=== PATIENT | female | born 1955 | race Two or more races ===

== ENCOUNTER 2022-09-27 14:25 | Outpatient (REF) | payer OTHER, SELFPAY ==
[2022-09-27 18:10] LABS: Cholesterol 179 mg/dL; HDL Cholesterol 94 mg/dL; LDL Cholesterol Calculated 61 mg/dl; Triglycerides 121 mg/dL
[2022-09-28 04:11] LABS: ~HepC Num1 0.19 S/CO (0.00-0.79); ~Hepatitis C Antibody Nonreactive (Nonreactive)
== END 2022-09-27 14:26 | disposition home or self-care (01) ==
LOC: HO.CHCLDS 14:25
PROVIDERS: Visit Provider Family Medicine
DX: Z13.9 Encounter for screening, unspecified (principal); E78.5 Hyperlipidemia, unspecified
CPT/HCPCS: 36415; 80061; 86803

== ENCOUNTER 2023-05-16 14:48 | Outpatient (REF) | payer OTHER, SELFPAY ==
[2023-05-16 17:49] LABS: Appearance Urine Clear; Color Urine Dark Yellow; Glucose Urine UA Negative (Negative); Leukocyte Esterase Urine Trace (Negative); Nitrite Urine Negative (Negative); PH 7.5 (5.0-9.0); Specific Gravity - Urine 1.025 (1.005-1.025); UMIC TRIGGER UACC YES; Urine Blood Negative (Negative); Urine Ketones Trace mg/dL (Negative); Urine Protein Negative (Neg-Trace)
[2023-05-16 17:52] LABS: Bacteria Urine None Seen (None Seen); Hyaline Casts Urine 0-2 /LPF (0-2); RBC Urine 0-2 /HPF (0-2); WBC Urine 0-5 /HPF (0-5)
== END 2023-05-16 14:49 | disposition home or self-care (01) ==
LOC: HO.CHCLNP 14:48
PROVIDERS: Visit Provider Family Medicine
DX: N39.41 Urge incontinence (principal)
CPT/HCPCS: 81001

== ENCOUNTER 2025-01-28 11:04 | Outpatient (REF) | payer OTHER, SELFPAY ==
--- OUTSIDE RECORDS SUMMARY | 2025-01-22 13:15 | XMS_ITS | Encounter Summary ---
Author Organization [employer] Address [address] [place] [address] Care Team Providers Care Crane Crew Supervisor Name Role Phone Therese Godinez MD Primary Care Provider [phone] Reason for Referral * Imaging (Routine) - Closed Specialty Diagnoses / Procedures Referred By Aimee souza Referred To Contact Radiology Diagnoses Encounter for screening mammogram for breast cancer Procedures MG Mammo Digital Screening w Kenia bilat [facility], Self Referral [facility] Referral ID Status Reason Start Date Expiration Date Visits Re quested Visits Authorized [id number] Closed 10/17/2024 10/17/2025 1 1 Reason for Visit * Imaging (Routine) - Closed Specialty Diagnoses / Procedures Referred By Aimee souza Referred To Contact Radiology Diagnoses Encounter for screening mammogram for breast cancer Procedures MG Mammo Digital Screening w Kenia bilat [facility], Self Referral [facility] Referral ID Status Reason Start Date Expiration Date Visits Re quested Visits Authorized [id number] Closed 10/17/2024 10/17/2025 1 1 Encounter Details Date Type Department Care Team (Latest Contact Info) Description 01/22/2025 1:15 PM EST - 01/22/2025 11:59 PM EST Hospital [facility] [address] [address] Encounter for screening mammogram for breast cancer Discharge Disposition: Home or Self Care Social History Tobacco Use Types Packs/Day Years Used Date Smoking Tobacco: Former Smokeless Tobacco: Never Alcohol Use Standard Drinks/Week Comments Yes 0 (1 standard drink = 0.6 oz pur e alcohol) Comments No Sex and Gender Information Value Date Recorded Sex Assigned at Female 10/08/2024 6:12 PM EDT Legal Sex Female 6:18 PM EST Gender Identity Not on file Sexual Orientation Not on file documented as of this encounter Last Filed Vital Signs Vital Sign Reading Time Taken Comments Blood Pressure - - Pulse - - Temperature - - Respiratory Rate - - Oxygen Saturation - - Inhaled Oxygen Concentration - - Weight 92.5 kg (204 lb) 01/22/2025 1:53 PM EST Height 149.9 cm (4' 11 ) 01/22/2025 1:53 PM EST Body Mass Index 41.2 01/22/2025 1:53 PM EST documented in this encounter Medications at Time of Discharge albuterol 2.5 mg /3 mL (0.083 %) nebulizer solution Inhale 3 mL (2.5 mg total) by mouth. 06/08/2022 amLODIPine (NORVASC) 5 mg tablet Take 1 tablet (5 mg total) by mouth 1 (one) time each day. 01/12/2022 bisacodyL (DULCOLAX) 5 mg EC tablet Take 2 tabs at 6pm as directed. 01/19/2022 Breo Ellipta 200-25 mcg/dose inhaler INHALE 1 PUFF BY MOUTH INTO THE lungs ONCE DAILY 60 each 11 06/20/2024 cetirizine (ZyrTEC) 10 mg tablet Take 1 tablet (10 mg total) by mouth 1 (one) time each day if needed. 12/17/2019 cholecalciferol (VITAMIN D-3) 50 mcg (2,000 unit) tablet Take 1 tablet (2,000 Units total) by mouth 1 (one) time each day. 01/27/2022 clonazePAM (KlonoPIN) 1 mg tablet Take 1 Tab by mouth 3 times daily. 05/29/2022 diclofenac (VOLTAREN) 1 % topical gel APPLY 2 GRAM TO THE AFFECTED AREA 4 (FOUR) TIMES DAILY 12/31/2022 docusate sodium (COLACE) 100 mg capsule Take 1 capsule (100 mg total) by mouth daily. 08/18/2020 DULoxetine (CYMBALTA) [address] capsule Take 1 capsule (60 mg total) by mouth daily. hydroCHLOROthiazi de (HYDRODIURIL) 25 mg tablet Take 1 tablet (25 mg total) by mouth 1 (one) time each day in the morning. 07/21/2021 lidocaine (LIDODERM) 5 % patch Place 1 patch on the skin. losartan (COZAAR) 25 mg tablet Take 1 tablet (25 mg total) by mouth 1 (one) time each day. 08/04/2021 melatonin 10 mg tablet Take by mouth at bedtime. 07/21/2021 nystatin (Nyamyc) 100,000 unit/gram powder 2 times daily. 08/13/2021 omeprazole (PriLOSEC) [address] capsule Take 1 capsule (20 mg total) by mouth. 12/17/2019 tolterodine LA (DETROL LA) 4 mg 24 hr capsule Take 1 capsule (4 mg total) by mouth 1 (one) time each day. 08/13/2021 Ventolin HFA 90 mcg/actuation inhalerIndication s:Personal history of nicotine dependence,Other specified chronic obstructive pulmonary disease (CMS/HCC V24, CMS/HCC V28) INHALE TWO PUFFS BY MOUTH 4 (FOUR) TIMES DAILY NEEDED FOR SHORTNESS OF BREATH OR FOR WHEEZING 18 g 2 11/21/2024 vitamin O88-wralg acid (Foltrate) 0.5-1 mg tablet Take by mouth. documented as of this encounter Discharge Disposition Disposition Code Departure Means Destination Home or Self Care documented in this encounter Plan of Treatment Upcoming Encounters Date Type Department Care Team (Late st Contact Info) Description 06/24/2025 2:30 PM EDT Office Visit Pulmonology - [address] [place] [address] Shelby Castro MD [address] [place] [phone] documented as of this encounter Procedures Procedure Name Priority Date/Time Associated Diagnosis Comments MG MAMMO DIGITAL SCREENING W KENIA BILAT Routine 01/22/2025 1:59 PM EST Encounter for screening mammogram for breast cancer documented in this encounter Results * MG Mammo Digital Screening w Kenia bilat (01/22/2025 1:59 PM EST) Anatomical Region Laterality Modality Breast Bilateral Mammography 01/22/2025 2:14 PM EST Impressions 01/23/2025 8:49 AM EST Benign. BI-RADS CATEGORY: 1 - NEGATIVE RECOMMENDATION: Screening bilateral mammogram is recommended in 1 year. Mammo Location: [facility], [address] [place] [address], [id number], . -------- FINAL REPORT -------- Dictated By: Yoyn Tinajero Dictated Date: 01/22/2025 14:14 ET Assigned Physician: Yony Tinajero Reviewed and Electronically Signed By: Yony Tinajero Signed Date: 01/23/2025 08:49 ET Workstation ID: [id number] Transcribed By: Self Edit Transcribed Date: 01/22/2025 14:14 ET Narrative 01/23/2025 8:49 AM EST CLINICAL: 69 years old, Female, routine annual exam. COMPARISON: 12/30/2023 and 10/08/2022. TECHNIQUE: Bilateral MLO and CC views were obtained digitally with 3-D mammogram (digital breast tomosynthesis). Computer-aided detection was utilized in evaluation of this exam (CAD). FINDINGS: No suspicious mass or architectural distortion. No suspicious calcification. There has been no significant change from prior exam(s). BREAST DENSITY: B - There are scattered areas of fibroglandular density. Procedure Note Yony Tinajero MD - 01/23/2025 CLINICAL: 69 years old, Female, routine annual exam. COMPARISON: 12/30/2023 and 10/08/2022. TECHNIQUE: Bilateral MLO and CC views were obtained digitally with 3-Dmammogram (digital breast tomosynthesis). Computer-aided detection wasutilized in evaluation of this exam (CAD). FINDINGS: No suspicious mass or architectural distortion. No suspiciouscalcification. There has been no significant change from prior exam(s). BREAST DENSITY: B - There are scattered areas of fibroglandular density. IMPRESSION: Benign. BI-RADS CATEGORY: 1 - NEGATIVE RECOMMENDATION: Screening bilateral mammogram is recommended in 1 year. Mammo Location: [facility], [address] [place] [address], [id number], . -------- FINAL REPORT -------- Dictated By: Yony Tinajero Dictated Date: 01/22/2025 14:14 ET Assigned Physician: Yony Tinajero Reviewed and Electronically Signed By: Yony Tinajero Signed Date: 01/23/2025 08:49 ET Workstation ID: [id number] Transcribed By: Self Edit Transcribed Date: 01/22/2025 14:14 ET us Self Referral [facility] IMG BI PROCEDURES Final Resul t documented in this encounter Visit Diagnoses Diagnosis Encounter for screening mammogram for breast cancer documented in this encounter Care Teams Crane Crew Supervisor Relationship Specialty Start Date End Date Therese Godinez MD [address] [place] [address] PCP - General 08/20/21 documented as of this encounter
--- OUTSIDE RECORDS SUMMARY | 2025-01-28 09:30 | XMS_ITS | Encounter Summary ---
Author Organization [employer] Address [address] [facility] [facility] [address] [place] [address] Care Team Providers Care Leadership Development Manager Name Role Phone Therese Godinez MD Primary Care Provider [phone] Reason for Visit * Reason Comments Followup chronic medical conditions Encounter Details Date Type Department Care Team ([facility] Contact Info) Description 01/28/2025 9:30 AM EST Office Visit [facility] [address], [place] [phone] Therese Godinez MD [address] [place] [address] Class 3 severe obesity due to excess calories with serious comorbidity and body mass index (BMI) of 40.0 to 44.9 in adult (HCC) (Primary Dx); Cervical pain; Primary hypertension; Encounter for immunization; History of CVA with residual deficit; MCI (mild cognitive impairment) Social History Tobacco Use Types Packs/Day Years Used Date Smoking Tobacco: Never Passive Smoke Exposure: Never Smokeless Tobacco: Never Alcohol Use Standard Drinks/Week Comments Not Currently 0 (1 standard drink = 0.6 oz pur e alcohol) 1 month without drinking Depression Answer Date Recorded Patient Health Questionnaire-9 Score 15 01/28/2025 Patient Health Questionnaire-9 Score 15 01/28/2025 Last PHQ-9: Questionnaire Data Not on file 1 03/31/2024 Housing Stability Answer Date Recorded What is your housing situation today? I have [place] 01/28/[address] you li ve. Do you have problems with any of the following? None of the above 01/28/2025 Food Insecurity Answer Date Recorded Within the past 12 months, y ou worried that your food would run out before you got money to buy more: Never True 01/28/2025 Within the past 12 months,th e food you bought just didn't last and you didn't have enough money to get more: Never True 02/2024 Transportation Answer Date Recorded In the past 12 months, has l ack of transportation kept you from medical appts, meetings, work or from getting things needed for daily living? No 01/28/2025 Utilities Answer Date Recorded In the past 12 months, has t he electric, gas, oil or water company threatened to shut off services in your home? No 01/28/2025 Depression Answer Date Recorded Patient Health Questionnaire-2 Score 3 01/28/2025 Internet Access Answer Date Recorded Internet Access Q1 Yes 01/28/2025 Internet Access Q2 Not on file 01/28/2025 Comments No Sex and Gender Information Value Date Recorded Sex Assigned at Female 12/28/2021 10:39 AM EDT Legal Sex Female 10:39 AM EDT Gender Identity Female 12/28/2021 10:39 AM EDT Sexual Orientation Choose not to disclose 2021 10:39 AM EDT documented as of this encounter Last Filed Vital Signs Vital Sign Reading Time Taken Comments Blood Pressure 156/76 01/28/2025 9:25 AM EST Pulse 74 01/28/2025 9:25 AM EST Temperature 36.8 C (98.2 F) 01/28/2025 9:25 AM EST Respiratory Rate 20 01/28/2025 9:25 AM EST Oxygen Saturation 98% 01/28/2025 9:25 AM EST Inhaled Oxygen Concentration - - Weight 99.1 kg (218 lb 6.4 oz) 01/28/2025 9:25 A M EST Height 149.9 cm (4' 11 ) 01/28/2025 9:25 AM EST Body Mass Index 44.11 01/28/2025 9:25 AM EST documented in this encounter Functional Status * Over the past 2 weeks, how often have you been bothered by any of the following problems? Question Answer Date of Assessment Author Patient Health Questionnaire-2 Score 3 02/2024 9:54 AM Luciana Nice MA * Little interest or pleasure in doing things Answer Date of Assessment Author Several days 01/28/2025 9:54 AM Luciana Nice MA * Feeling down, depressed, or hopeless Answer Date of Assessment Author More than half the days 01/28/2025 9:54 AM Luciana Hodge MA * Trouble falling or staying asleep, or sleeping too much Answer Date of Assessment Author More than half the days 01/28/2025 9:54 AM Luciana Hodge MA * Feeling tired or having little energy Answer Date of Assessment Author Nearly every day 01/28/2025 9:54 AM Luciana Nice MA * Poor appetite or overeating Answer Date of Assessment Author Nearly every day 01/28/2025 9:54 AM Luciana Nice MA * Feeling bad about yourself - or that you are a failure or have let yourself or your family down Answer Date of Assessment Author More than half the days 01/28/2025 9:54 AM Luciana Hodge MA * Trouble concentrating on things, such as reading the newspaper or watching television Answer Date of Assessment Author Several days 01/28/2025 9:54 AM Luciana Nice MA * Moving or speaking so slowly that other people could have noticed? Or the opposite - being so fidgety or restless that you have been moving around a lot more than usual. Answer Date of Assessment Author Several days 01/28/2025 9:54 AM Luciana Nice MA * Thoughts that you would be better off or hurting yourself in some way Answer Date of Assessment Author Not at all 01/28/2025 9:54 AM Luciana Nice MA * Patient Health Questionnaire-9 Score Answer Date of Assessment Author 15 01/28/2025 9:54 AM Luciana Nice MA documented as of this encounter Progress Notes * Therese Godinez MD - 01/28/2025 9:30 AM EST Subjective Patient ID: Urvashi Viveros is a 69 y.o. female who presents for Followup chronic medical conditions. Urvashi Viveros presents with severe anxiety that is significantly impacting her ability towork and function. She reports eating excessively, drinking large amounts of water, urinating frequently, and experiencing diarrhea in association with her anxiety symptoms. She states she cannot continue working in her current condition and needs help managing these symptoms. The patient is seeking weight loss assistance, noting that her insurance will only cover obesity injections for diabetes, which she does not have. She reports that phentermine is not an option due toher high blood pressure and anxiety. She expresses that she needs to lose weight in order to have knee surgery and to help reduce her anxiety symptoms. She reports significant pain in her waist and back. Two months ago, she experienced a fainting episode during which she hit her head but did not seek hospital care. She continues to experience fatigue, which she attributes to her age, and reports fear of falling again, now using a walking stick forsupport. Regarding medication adherence, she has not taken her blood pressure medication today due to scheduled blood tests. She is currently taking 150mg Wellbutrin, 1mg clonazepam, 60mg Cymbalta, 10mg melatonin, and 15mg Remeron under the care of psychiatrist Dr. Adam Cortez. She expresses dissatisfaction with Remeron, stating it causes falls and weight gain. The patient reports functional limitations requiring assistance from her daughter with laundry, shopping, cleaning, bills, and bathing, though she continues to cook and prepare her own medications. She denies having diabetes, problems with teeth or dentures, and reports not smoking for 15 years. Medical History - Anxiety - High blood pressure - History of stroke with residual right hand weakness - Syncope with head injury approximately two months ago, did not seek medical attention Medications and Supplements - Wellbutrin 150 mg - Clonazepam 1 mg - Cymbalta 60 mg - Melatonin 10 mg - Remeron 15 mg - Makes her fall and gain weight. Doesn't like it. Social History - Substance Use: Denies smoking, quit 15 years ago - Living Situation: Lives with daughter who provides assistance with activities of daily living including laundry, shopping, cleaning, bills, and bathing - Social Support: Daughter provides significant caregiving support; patient maintains some independence with cooking and medication preparation - Functional Status: Uses walking stick for mobility support due to fear of falling; requires assistance with some household tasks Immunizations - Influenza: Patient reports getting sick after receiving flu vaccine in November - PCV20: Patient received pneumococcal vaccine three years ago - COVID-19: Patient declines COVID-19 vaccination Review of Systems General: Positive for fatigue and increased appetite. Gastrointestinal: Positive for diarrhea and increased water intake. Genitourinary: Positive for urinary frequency. Musculoskeletal: Positive for waist pain and back pain. Neurological: Positive for episodes of falling. Psychiatric: Positive for anxiety. Review of Systems Objective BP (!) 156/76 Pulse 74 Temp 98.2 ??F (36.8 ??C) (Oral) Resp 20 Ht 4' 11 (1.499 m) Wt 218lb 6.4 oz (99.1 kg) SpO2 98% BMI 44.11 kg/m?? Physical Exam Constitutional: General: She is not in acute distress. Appearance: She is obese. She is not ill-appearing. Comments: Walks with cane HENT: Head: Atraumatic. Right Ear: Tympanic membrane, ear canal and external ear normal. Left Ear: Tympanic membrane, ear canal and external ear normal. Nose: No congestion. Mouth/Throat: Pharynx: No oropharyngeal exudate or posterior oropharyngeal erythema. Eyes: Extraocular Movements: Extraocular movements intact. Pupils: Pupils are equal, round, and reactive to light. Cardiovascular: Rate and Rhythm: Normal rate and regular rhythm. Pulses: Normal pulses. Pulmonary: Effort: Pulmonary effort is normal. No respiratory distress. Breath sounds: Normal breath sounds. No wheezing. Musculoskeletal: Left shoulder: No swelling, deformity or tenderness. Decreased range of motion. Decreased strength. Assessment/Plan Problem List Items Addressed This Visit HTN (hypertension) Relevant Orders CBC auto differential Comprehensive Metabolic Panel Lipid Panel, Standard Albumin, Random Urine W/Creatinine Class 3 severe obesity due to excess calories with serious comorbidity and body mass index (BMI) of40.0 to 44.9 in adult (HCC) - Primary Relevant Orders POCT Glucose (Completed) POCT Hgb A1c (Completed) Cervical pain History of CVA with residual deficit Other Visit Diagnoses Encounter for immunization Relevant Orders FLU VACCINE TRIVALENT HIGH DOSE [id number] (Fluzone) 65 yrs + (Completed) Urvashi Viveros presents with anxiety disorder, weight management concerns, hypertension, mild cognitive impairment, and fall risk issues. Anxiety disorder Assessment: Patient reports severe anxiety that significantly impacts her ability to work and function. Currently managed by Adam Cortez WATER SANDER with multiple medications including clonazepam 1mg, Wellbutrin 150mg, Cymbalta 60mg, and Remeron 15mg. Patient expresses dissatisfaction with Remeron due to side effects of falls and weight gain. Anxiety appears to be contributing to her overall functional decline and weight management challenges. Plan: - Consider increasing Wellbutrin to 300mg with addition of naltrexone for dual benefit of anxiety management and weight loss - Continue current psychiatric care with Dr. Adam Cortez Weight management Assessment: Patient reports significant weight concerns with associated symptoms of increased appetite and frequent urination. Weight loss is medically necessary for knee surgery candidacy and anxiety reduction. Phentermine contraindicated due to hypertension and anxiety. Insurance coverage limitations prevent access to obesity injections, which are only covered for diabetes patients. Plan: - Consider increasing Wellbutrin to 300mg with addition of naltrexone for weight management Hypertension Assessment: Patient has established hypertension and reports needing a new blood pressure monitoring device. Medication compliance interrupted today due to pending blood tests. Hypertension limits pharmacological weight management options. Plan: - Obtain new blood pressure monitoring device Mild cognitive impairment Assessment: Cognitive assessment performed with memory tests, mathematical calculations, animal naming, digit span, clock drawing, and story recall. Patient demonstrated some difficulties but overallperformance indicates slight memory alteration without dementia. Patient has established social security payee/guardian arrangement as precautionary measure. Plan: - Recommend staying active and maintaining hobbies - Healthcare proxy discussion and form completion with daughter present for signing - Nurse appointment scheduled for healthcare proxy paperwork Fall risk and mobility issues Assessment: Patient reports fainting episode two months ago resulting in head injury without hospital evaluation. Currently uses walking stick for support due to fear of falling. Right hand weakness noted on examination, attributed to previous stroke history. Patient experiences waist and back pain. Requires assistance from daughter for various activities of daily living including laundry, shopping, cleaning, bills, and bathing. Plan: - Continue use of walking cane for mobility support Preventive care Assessment: Patient due for routine vaccinations. Reports previous illness after flu vaccine but timing suggests unrelated illness in November. Patient completed mammography as scheduled. Declines COVID vaccination. Plan: - Administer influenza vaccine today - Nurse to administer vaccine Patient requesting 10 in 1 Flip pillow for her cervical back pain and knee osteoarthritis Florez Index of ADL: 6 Jonnathan: 3 SLUMS: 24 documented in this encounter Plan of Treatment Upcoming Encounters Date Type Department Care Team (Late st Contact Info) Description 02/13/2025 2:00 PM EST Clinical Support [facility] [address] [place] [address] Scheduled Orders Name Type Priority Associated Diagnoses Orde r Schedule CBC auto differential Lab Routine Primary hypertension Expected: 01/28/2025 (Approximate), Expires: 01/28/2026 Comprehensive Metabolic Panel Lab Routine Primary hypertension Expected: 01/28/2025 (Approximate), Expires: 01/28/2026 Lipid Panel, Standard Lab Routine Primary hypertension Expected: 01/28/2025 (Approximate), Expires: 01/28/2026 Albumin, Random Urine W/Creatinine Lab Routine Primary hypertension Expected: 01/28/2025 (Approximate), Expires: 01/28/2026 documented as of this encounter Procedures Procedure Name Priority Date/Time Associated Diagnosis Comments POCT GLUCOSE Routine 01/28/2025 10:07 AM EST Class 3 severe obesity due to excess calories with serious comorbidity and body mass index (BMI) of 40.0 to 44.9 in adult ([facility]) POCT GLYCATED HEMOGLOBIN, TOTAL Routine 01/28/2025 10:06 AM EST Class 3 severe obesity due to excess calories with serious comorbidity and body mass index (BMI) of 40.0 to 44.9 in adult ([facility]) documented in this encounter Results * POCT Glucose (01/28/2025 10:07 AM EST) Glucose Blood, POC 110 60 - 200 mg/dL QC Media Lot # [id number] Blood Capillary blood specimen / Unknown 01/28/2025 10:07 AM EST Therese Godinez MD POINT OF CARE TEST ENTER/EDIT ORDERABLES Final Result * POCT Hgb A1c (01/28/2025 10:06 AM EST) Hemoglobin A1C 5.1 4.0 - 5.7 % QC Media Lot # [id number] Lot# Expiration Date [id number] Blood 01/28/2025 10:0 6 AM EST us Therese Godinez MD POINT OF CARE TEST ENTER/EDIT ORDERABLES Final Result documented in this encounter Visit Diagnoses Diagnosis Class 3 severe obesity due to excess calories with serious comorbidity and body mass index (BMI) of 40.0 to 44.9 in adult (HCC)- Primary Cervical pain Cervicalgia Primary hypertension Unspecified essential hypertension Encounter for immunization History of CVA with residual deficit MCI (mild cognitive impairment) Mild cognitive impairment, so stated documented in this encounter Additional Health Concerns Assessment Noted Time PHQ-9 Depression Total Score: 15 025 9:54 AM EST documented as of this encounter Care Teams Leadership Development Manager Relationship Specialty Start Date End Date Therese Godinez MD [address] [place] [address] PCP - General Family Medicine 11/27/20 Adam Cortez Nurse Practitioner Psychiatry 06/29/23 documented as of this encounter
[2025-01-28 14:26] LABS: MANUAL DIFF FLAG NO
--- OUTSIDE RECORDS SUMMARY | 2025-01-28 14:29 | XMS_ITS | Encounter Summary ---
Author Organization [employer] Address [address] [place] [address] Care Team Providers Care Automatic Washer Mechanic Name Role Phone Therese Godinez MD Primary Care Provider [phone] Reason for Visit * Reason Comments Med Refill Encounter Details Date Type Department Care Team ([facility] Contact Info) Description 09/13/2022 Refill [facility] MEDICINE [address] [place] [address] Therese Godinez MD [address] [place], [place] [phone] Primary hypertension Social History Tobacco Use Types Packs/Day Years Used Date Smoking Tobacco: Never Passive Smoke Exposure: Never Smokeless Tobacco: Never Alcohol Use Standard Drinks/Week Comments Never 0 (1 standard drink = 0.6 oz pur e alcohol) Depression Answer Date Recorded Patient Health Questionnaire-9 Score 4 06/28/2022 Depression Answer Date Recorded Patient Health Questionnaire-2 Score 2 06/28/2022 Comments Unknown Sex and Gender Information Value Date Recorded Sex Assigned at Female 12/28/2021 10:39 AM EDT Legal Sex Female 10:39 AM EDT Gender Identity Female 12/28/2021 10:39 AM EDT Sexual Orientation Choose not to disclose 2021 10:39 AM EDT COVID-19 Exposure Response Date Recorded In the last 10 days, have yo u been in contact with someone who was confirmed or suspected to have Coronavirus/COVID-19? No / Unsure 08/25/2022 1:58 PM EDT documented as of this encounter Plan of Treatment Upcoming Encounters Date Type Department Care Team ([facility] Contact Info) Description 02/13/2025 2:00 PM EST Clinical Support [facility] CHC MED & PEDS [address] [place] [address] documented as of this encounter Visit Diagnoses Diagnosis Primary hypertension Unspecified essential hypertension documented in this encounter Additional Health Concerns Assessment Noted Time PHQ-9 Depression Total Score: 4 06/29/19 23 9:31 AM EDT documented as of this encounter Care Teams Automatic Washer Mechanic Relationship Specialty Start Date End Date Therese Godinez MD [address] [place] [id number] PCP - General Family Medicine 11/27/20 Adam Cortez Nurse Practitioner Psychiatry 06/29/23 documented as of this encounter
--- OUTSIDE RECORDS SUMMARY | 2025-01-28 14:29 | XMS_ITS | Encounter Summary ---
Author Organization [employer] Address [address] [place] [address] Care Team Providers Care Strap Buckler Name Role Phone Therese Godinez MD Primary Care Provider [phone] Reason for Visit * Reason Comments Med Refill Encounter Details Date Type Department Care Team ([facility] Contact Info) Description 10/21/2023 Refill [facility] CHC MED & PEDS [address] [place], [place] [phone] Therese Godinez MD [address] [place], [place] [phone] Urinary incontinence, unspecified type Social History Tobacco Use Types Packs/Day Years Used Date Smoking Tobacco: Never Passive Smoke Exposure: Never Smokeless Tobacco: Never Alcohol Use Standard Drinks/Week Comments Not Currently 0 (1 standard drink = 0.6 oz pur e alcohol) 1 month without drinking Depression Answer Date Recorded Patient Health Questionnaire-9 Score 4 06/28/2022 Housing Stability Answer Date Recorded What is your housing situation today? I have villa loepz 12/13/[address] you li ve. Do you have problems with any of the following? None of the above 12/13/2022 Food Insecurity Answer Date Recorded Within the past 12 months, y ou worried that your food would run out before you got money to buy more: Never True 12/13/2022 Within the past 12 months,th e food you bought just didn't last and you didn't have enough money to get more: Never True Transportation Answer Date Recorded In the past 12 months, has l ack of transportation kept you from medical appts, meetings, work or from getting things needed for daily living? No 12/13/2022 Utilities Answer Date Recorded In the past 12 months, has t he electric, gas, oil or water company threatened to shut off services in your home? No 12/13/2022 Depression Answer Date Recorded Patient Health Questionnaire-2 Score 2 06/28/2022 Comments No Sex and Gender Information Value Date Recorded Sex Assigned at Female 12/28/2021 10:39 AM EDT Legal Sex Female 10:39 AM EDT Gender Identity Female 12/28/2021 10:39 AM EDT Sexual Orientation Choose not to disclose 2021 10:39 AM EDT documented as of this encounter Plan of Treatment Upcoming Encounters Date Type Department Care Team (Late st Contact Info) Description 02/13/2025 2:00 PM EST Clinical Support [facility] MED & PEDS [address] [place] [address] documented as of this encounter Visit Diagnoses Diagnosis Urinary incontinence, unspecified type documented in this encounter Additional Health Concerns Assessment Noted Time PHQ-9 Depression Total Score: 4 06/29/19 23 9:31 AM EDT documented as of this encounter Care Teams Strap Buckler Relationship Specialty Start Date End Date Therese Godinez MD [address] [place] [id number] PCP - General Family Medicine 11/27/20 Adam Cortez Nurse Practitioner Psychiatry 06/29/23 documented as of this encounter
--- OUTSIDE RECORDS SUMMARY | 2025-01-28 14:29 | XMS_ITS | Encounter Summary ---
Author Organization [email or web address] Address [address] [place] [address] Care Team Providers Care Quarantine Officer Name Role Phone Therese Godinez MD Primary Care Provider [phone] Encounter Details Date Type Department Care Team (Late st Contact Info) Description 08/31/2023 Orders Only [facility] CHC MED & PEDS [address] [place] [address] Provider, MD Komal Social History Tobacco Use Types Packs/Day Years [...] housing situation today? I have villa lopez 12/13/[address] you li [...] Description 02/13/2025 2:00 PM EST Clinical Support [facility] MED & PEDS [address] [place] [address] documented as of this encounter Procedures Procedure Name Priority Date/Time Associated Diagnosis Comments COLONOSCOPY Routine 01/27/2023 3:51 PM EST documented in this encounter Results * Colonoscopy (01/27/2023 3:51 PM EST) Anatomical Region Laterality Modality Endoscopy us Historical Provider ENDOSCOPY PROCEDURE ORDER MONICA Final Result documented in this encounter Visit Diagnoses Not on filedocumented in this encounter Additional Health Concerns Assessment Noted Time PHQ-9 Depression Total Score: 4 06/29/19 23 9:31 AM EDT documented as of this encounter Care Teams Quarantine Officer Relationship Specialty Start Date End Date Therese Godinez MD [address] [place] [address] PCP - General Family Medicine 11/27/20 Adam Cortez Nurse Practitioner Psychiatry 06/29/23 documented as of this encounter
--- OUTSIDE RECORDS SUMMARY | 2025-01-28 14:29 | XMS_ITS | Encounter Summary ---
Author Organization [employer] Address [address] [place] [address] Care Team Providers Care Associate Professor Of Biostatistics Name Role Phone Therese Godinez MD Primary Care Provider [phone] Encounter Details Date Type Department Care Team (Latest Contact Info) Description 01/28/2025 Travel Social History Tobacco Use Types Packs/Day Years [...] AM EDT documented as of this encounter Functional Status * Over the [...] [place] documented as of this encounter Plan of Treatment Upcoming Encounters Date Type Department Care Team (Late st Contact Info) Description 02/13/2025 2:00 PM EST Clinical Support [facility] MED & PEDS [address] [place] [address] documented as of this encounter Visit Diagnoses Not on filedocumented in this encounter Additional Health Concerns Assessment Noted Time PHQ-9 Depression Total Score: 15 025 9:54 AM EST documented as of this encounter Care Teams Associate Professor Of Biostatistics Relationship Specialty Start Date End Date Therese Godinez MD [address] [place] [address] PCP - General Family Medicine 11/27/20 Adam Cortez Nurse Practitioner Psychiatry 06/29/23 documented as of this encounter
--- OUTSIDE RECORDS SUMMARY | 2025-01-28 14:29 | XMS_ITS | Encounter Summary ---
Author Organization [employer] Address [address] [place] [address] Care Team Providers Care Email Marketing Processor Name Role Phone Therese Godinez MD Primary Care Provider [phone] Encounter Details Date Type Department Care Team (Late st Contact Info) Description 09/26/2023 Orders Only [facility] CHC MED & PEDS [address] [place] [address] Provider, MD Komal Social History Tobacco Use [...] PM EST Clinical Support [facility] MED & PEDS [address] [place] [address] documented as of this encounter Procedures Procedure Name Priority Date/Time Associated Diagnosis Comments HM LUNG CANCER SCREENING Routine 09/19/2023 3:[address] LUNG SCREENING Routine 09/19/2023 8:33 AM EDT documented in this encounter Results * Hm Lung Cancer Screning (09/19/2023 3:42 PM EDT) Anatomical Region Laterality Modality Other us Historical Provider HEALTH MAINTENANCE Final Result * CT Lung Screening Low dose (09/19/2023 8:33 AM EDT) Anatomical Region Laterality Modality Lung Computed Tomogra phy us Historical Provider IMG CT PROCEDURES Final R esult documented in this encounter Visit Diagnoses Not on filedocumented in this encounter Additional Health Concerns Assessment Noted Time PHQ-9 Depression Total Score: 4 06/29/19 23 9:31 AM EDT documented as of this encounter Care Teams Email Marketing Processor Relationship Specialty Start Date End Date Therese Godinez MD [address] [place] [address] PCP - General Family Medicine 11/27/20 Adam Cortez Nurse Practitioner Psychiatry 06/29/23 documented as of this encounter
--- OUTSIDE RECORDS SUMMARY | 2025-01-28 14:29 | XMS_ITS | Encounter Summary ---
Author Organization [employer] Address [address] [place] [address] Care Team Providers Care Accounts Payables Clerk Name Role Phone Therese Godinez MD Primary Care Provider [phone] Encounter Details Date Type Department Care Team ([facility] Contact Info) Description 01/28/2025 Telephone C CHC MED & PEDS [address] [place], [place] [phone] Therese Godinez MD [address] [place], [place] [phone] Social History Tobacco Use Types Packs/Day Years [...] [place] documented as of this encounter Miscellaneous Notes * Telephone Encounter - Debbie Beck LPN - 01/28/2025 12:48 PM EST RX generated and faxed L&C with pcp notes . If pt is requesting Status pt can call vendor [phone] Rx scanned into media for review ----- Message from Therese Godinez MD sent at 01/28/2025 11:30 AM EST ----- Can we proceed with patient request for a 10in 1 flip pillow please and thanks! * Telephone Encounter - Debbie Beck LPN - 01/28/2025 12:48 PM EST ----- Message from Therese Godinez MD sent at 01/28/2025 11:30 AM EST ----- Can we proceed with patient request for a 10in 1 flip pillow please and thanks! documented in this encounter Plan of Treatment Upcoming Encounters Date Type Department Care Team ([facility] st Contact Info) Description 02/13/2025 2:00 PM EST Clinical Support [facility] MED & PEDS [address] [place] [address] documented as of this encounter Visit Diagnoses Not on filedocumented in this encounter Additional Health Concerns Assessment Noted Time PHQ-9 Depression Total Score: 15 025 9:54 AM EST documented as of this encounter Care Teams Accounts Payables Clerk Relationship Specialty Start Date End Date Therese Godinez MD [address] [place] [address] PCP - General Family Medicine 11/27/20 Adam Cortez Nurse Practitioner Psychiatry 06/29/23 documented as of this encounter
--- OUTSIDE RECORDS SUMMARY | 2025-01-28 14:29 | XMS_ITS | Clinical Summary ---
Author Organization [facility] Address [address] [place] [phone] Phone Care Team Providers Care Sales Agent Casualty Insurance Name Role Phone Therese Godinez MD Primary Care Provider [phone] Allergies Active Allergy Reactions Criticality Noted Date Comments Aspirin-Sod Bicarb-Citric Acid Other High 04/11/2023 Pt states can cause Internal bleeding per her provider. Latex 11/27/2020 Medications albuterol 2.5 mg /3 mL (0.083 %) nebulizer solution Inhale 3 mL (2.5 mg total) by mouth. 3 Active amLODIPine (NORVASC) 5 mg tablet Take 1 tablet (5 mg total) by mouth 1 (one) time each day. 2 Active bisacodyL (DULCOLAX) 5 mg EC tablet Take 2 tabs at 6pm as directed. 2 Active hydroCHLOROthiaz ector (HYDRODIURIL) 25 mg tablet Take 1 tablet (25 mg total) by mouth 1 (one) time each day in the morning. 2 Active losartan (COZAAR) 25 mg tablet Take 1 tablet (25 mg total) by mouth 1 (one) time each day. 2 Active melatonin 10 mg tablet Take by mouth at bedtime. 2 Active tolterodine LA (DETROL LA) 4 mg 24 hr capsule Take 1 capsule (4 mg total) by mouth 1 (one) time each day. 2 Active cholecalciferol (VITAMIN D-3) 50 mcg (2,000 unit) tablet Take 1 tablet (2,000 Units total) by mouth 1 (one) time each day. 2 Active diclofenac (VOLTAREN) 1 % topical gel APPLY 2 GRAM TO THE AFFECTED AREA 4 (FOUR) TIMES DAILY 3 Active lidocaine (LIDODERM) 5 % patch Place 1 patch on the skin. Active nystatin (Nyamyc) 100,000 unit/gram powder 2 times daily. 2 Active vitamin Z22-wuelh acid (Foltrate) 0.5-1 mg tablet Take by mouth. Activ e docusate sodium (COLACE) 100 mg capsule Take 1 capsule (100 mg total) by mouth daily. 1 Active cetirizine (ZyrTEC) 10 mg tablet Take 1 tablet (10 mg total) by mouth 1 (one) time each day if needed. 0 Active omeprazole (PriLOSEC) [address] capsule Take 1 capsule (20 mg total) by mouth. 0 Active DULoxetine (CYMBALTA) [address] capsule Take 1 capsule (60 mg total) by mouth daily. Active clonazePAM (KlonoPIN) 1 mg tablet Take 1 Tab by mouth 3 times daily. 3 Active Breo Ellipta 200-25 mcg/dose inhaler INHALE 1 PUFF BY MOUTH INTO THE lungs ONCE DAILY 60 each 11 5 Active Ventolin HFA 90 mcg/actuation inhalerIndicatio ns:Personal history of nicotine dependence,Other specified chronic obstructive pulmonary disease ([facility] V24, [facility] V28) INHALE TWO PUFFS BY MOUTH 4 (FOUR) TIMES DAILY NEEDED FOR SHORTNESS OF BREATH OR FOR WHEEZING 18 g 2 5 Active Active Problems Problem Noted Date Diagnosed Date Pulmonary nodules 10/29/2019 Overview (12/27/2023): Last Assessment & Plan: Stable pulmonary nodules subcentimeter. Continue in the lung cancer screening program. 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 D classification ([facility] V24, [facility] V28) 10/29/2019 Overview (12/27/2023): Last Assessment & Plan: Continue with the use of Breo/Ellipta 1 puff once a day Continue with albuterol as needed New PFT in August 2022 Patient already quit smoking Patient has a plan of action Hyperuricemia 06/09/2017 Fatty liver 11/27/2015 Asthma 11/27/2015 Morbid obesity (CMS/[facility] V24, [facility] V28) 2015 Depression 07/30/2015 Overview (12/27/2023): F/u Dr. Gilma Estrada 07/30/2015 Primary hypertension 07/30/2015 Overview (12/27/2023): Last Assessment & Plan: Controlled HTN (hypertension) 07/30/2015 Encounters Date Type Department Care Team Description 01/22/2025 1:15 PM EST - 01/22/2025 11:59 PM EST Hospital Encounter [facility] [address] [place] [address] Encounter for screening mammogram for breast cancer Discharge Disposition: Home or Self Care 11/06/2024 Telephone Pulmonology - [place] [address] [facility] [address] [place] [address] Shelby Castro MD from Last 3 Months Immunizations Immunization Administration Dates Next Due Influenza Quadravalent, 0.5m l (Fluzone High-dose) 65yo and older 12/02/2022,12/16/2021 Influenza Quadravalent, MDCK , 0.5ml, with preservative (Flucelvax) 6mo and older 12/30/2016 Influenza Quadrivalent, 0.5m l, preservative free (Fluarix; FluLaval; Fluzone) ages 6mo and older (Afluria) 3yo and older 11/27/2020 Influenza trivalent, 0.5mL, preservative free (Fluarix; FluLaval; Fluzone) ages 6mo and older (Afluria) 3 years and older 11/27/2015 Influenza trivalent, MDCK, 0 .5mL, preservative free (Flucelvax) 6mo and older 12/05/2023 Influenza trivalent, with pr eservative (Fluzone; Afluria) 6mo and older 11/27/2015,11/13/2010 Pneumococcal conjugate 13 va lent (Prevnar 13, PCV13) 2mo and older 11/27/2015 Pneumococcal polysaccharide 23 valent (Pneumovax 23) 2yo and older 12/22/2021 RSV, bivalent, protein subun it RSVpreF, 0.5mL, Preservative Free (ABRYSVO) 50yo and older or 32 through 36 wks of 05/16/2023 Tdap Tetanus diptheria acell ular pertussis (Boostrix; Adacel) 7yo and older 09/16/2017 Zoster recombinant (Shingrix) 19yo and older 11/2022,06/28/2022 Surgical History Surgery Date Site/Laterality Comments OTHER SURGICAL HISTORY PROCEDURE: ---- OTHER ----; COMMENT: throat polyp resection SECTION PROCEDURE: HISTORICAL DELIVERY HYSTERECTOMY PROCEDURE: HISTORICAL HYSTERECTOMY Medical History Medical History Date Comments Hypertension 07/30/2015 DX:Hypertension Depression 07/30/2015 DX:Depression Fibromyalgia 07/30/2015 DX:Fibromyalgia Morbid obesity ([facility] V24, [facility] V28) 07/30/19 16 DX:Morbid obesity ([facility]) Hyperuricemia 06/09/2017 DX:Hyperuricemia Family History Medical History Relation Name Comments Breast cancer Maternal Grandmother Heart attack Mother Relation Name Status Comments Brother Alive Daughter 1 Alive Daughter 2 Alive Maternal Grandmother Mother (Age 86) Sister Alive Son Alive Social History Tobacco Use Types Packs/Day Years Used Date Smoking Tobacco: Former Smokeless Tobacco: Never Tobacco Cessation:Counseling Given: Not Answered Alcohol Use Standard Drinks/Week Comments Yes 0 (1 standard drink = 0.6 oz pur e alcohol) Comments No Sex and Gender Information Value Date Recorded Sex Assigned at Female 10/08/2024 6:12 PM EDT Legal Sex Female 6:18 PM EST Gender Identity Not on file Sexual Orientation Not on file Obstetrics History Para Term AB IAB SAB Ectopic Multiple Livin g Live Births 3 Last Filed Vital Signs Vital Sign Reading Time Taken Comments Blood Pressure 124/78 06/22/2024 3:48 PM EDT Pulse 70 06/22/2024 3:48 PM EDT Temperature 36.3 C (97.3 F) 06/22/2024 3:48 PM EDT Respiratory Rate 20 06/22/2024 3:48 PM EDT Oxygen Saturation 96% 06/22/2024 3:48 PM EDT Inhaled Oxygen Concentration - - Weight 92.5 kg (204 lb) 01/22/2025 1:53 PM EST Height 149.9 cm (4' 11 ) 01/22/2025 1:53 PM EST Body Mass Index 41.2 01/22/2025 1:53 PM EST Plan of Treatment Upcoming Encounters Date Type Department Care Team (Late st Contact Info) Description 06/24/2025 2:30 PM EDT Office Visit Pulmonology - [place] [address] [facility] [address] [place] [address] Shelby Castro MD [address] [place] [phone] Health Maintenance Due Date Last Done Comments Diabetes: Annual Foot Exam 12/19/1965 Diabetes: Annual Retina Eye Exam 12/19/1965 Cervical Cancer Screening: HPV 12/19/1976 Diabetes: Annual GFR (Glomerular Filtration Rate) 02/09/2020 02/08/2019 Falls Risk Assessment 02/06/2022 Medicare Annual Wellness Visit 02/06/2022 Osteoporosis Screening (Bone Density Screening) 02/06/2022 Social Influencers of Health Screening 02/06/2022 Hypertension/CHF/CAD Annual BMP Blood Test 02/11/2022 02/08/2019 Diabetes: Annual Urine Albumin-Creatinine Ratio (uACR) 12/27/2023 06/28/2022 Diabetes: Blood Sugar Control Test (HGBA1C) 12/27/2023 06/28/2022, 09/16/2017 Depression Screening 02/29/2024 COVID-19 Vaccine ( season) 2024 07/17/2020, 06/22/2020 Influenza Vaccine (#1) 2024 , 12/02/2022, 12/16/2021, Additional history exists Colorectal Cancer Screening: Colonoscopy 01/27/2026 01/27/2023, 01/27/2023 Breast Cancer Screening 01/22/2027 01/23/20, 12/30/2023, 10/08/2022, Additional history exists DTaP,Tdap,and Td Vaccines (2 - Td or Tdap) 09/17/2027 09/16/2017 Cholesterol Screening (Lipid Panel) 09/28/2027 09/27/2022, 02/08/2019 Hepatitis C Screening Completed 10/03/2014, 015 Pneumococcal Vaccine: 50+ Years Completed 12/22/2021, 11/27/2015 Zoster Vaccines Completed 09/06/2022, 06/28/2022 RSV Immunization Adult Patients Completed 05/16/2023 HIB Vaccines Aged Out No longer eligi ble based on patient's age to complete this topic HPV Vaccines Aged Out No longer eligi ble based on patient's age to complete this topic Hepatitis A Vaccines Aged Out No long er eligible based on patient's age to complete this topic Hepatitis B Vaccines Aged Out No long er eligible based on patient's age to complete this topic IPV Vaccines Aged Out No longer eligi ble based on patient's age to complete this topic MMR Vaccines Aged Out No longer eligi ble based on patient's age to complete this topic Meningococcal ACWY Vaccine Aged Out N o longer eligible based on patient's age to complete this topic Meningococcal B Vaccine Aged Out No l onger eligible based on patient's age to complete this topic RSV Immunization Patients Under 20 months Aged Out No longer eligible based on patient's age to complete this topic Varicella Vaccines Aged Out No longer eligible based on patient's age to complete this topic Procedures Procedure Name Priority Date/Time Associated Diagnosis Comments MG MAMMO DIGITAL SCREENING W KENIA BILAT Routine 01/22/2025 1:59 PM EST Encounter for screening mammogram for breast cancer COLONOSCOPY Routine 01/27/2023 ANNUAL BMP BLOOD TEST Routine 02/08/2019 LIPID PANEL Routine 02/08/2019 HEMOGLOBIN A1C Routine 09/16/2017 HEPATITIS C SCREENING Routine 10/03/2014 from Last 3 Months or Most Recently Relevant to Health Maintenance Results * MG Mammo Digital Screening w Kenia bilat (01/22/2025 1:59 PM EST) Anatomical Region Laterality Modality Breast Bilateral Mammography 01/22/2025 2:14 PM EST Impressions 01/23/2025 8:49 AM EST Benign. BI-RADS CATEGORY: 1 - NEGATIVE RECOMMENDATION: Screening bilateral mammogram is recommended in 1 year. Mammo Location: [facility], [address] [place] [address], [phone], . -------- FINAL REPORT -------- Dictated By: Yony Tinajero Dictated Date: 01/22/2025 14:14 ET Assigned Physician: Yony Tinajero Reviewed and Electronically Signed By: Yony Tinajero Signed Date: 01/23/2025 08:49 ET Workstation ID: [id number] Transcribed By: Self Edit Transcribed Date: 01/22/2025 [...] year. Mammo Location: [facility], [address] [place] [address], [phone], . -------- FINAL REPORT -------- Dictated By: Yony Tinajero Dictated Date: 01/22/2025 14:14 ET Assigned Physician: Yony Tinajero Reviewed and Electronically Signed By: Yony Tinajero Signed Date: 01/23/2025 08:49 ET Workstation ID: [id number] Transcribed By: Self Edit Transcribed Date: 01/22/2025 14:14 ET Result [facility] Self Referral Sppl IMG BI PROCEDURES Final Resul t * Colonoscopy (01/27/2023) [facility] Colonoscopy No Interpretation , Abstracted Anatomical Region Laterality Modality Other Result [facility] HEALTH MAINTENANCE Final Result * Annual BMP Blood Test (02/08/2019) [facility] Annual BMP Blood Test Abstracted Result [facility] Provider HEALTH MAINTENANCE Final Result * (ABNORMAL) Lipid panel (02/08/2019) [facility] LDL/HDL Ratio 3 0 - 4 Triglycerides 177(A) 0 - 150 mg/dL Cholesterol 191 0 - 200 mg/dL HDL 75 >=40 mg/dL LDL Cholesterol 81 0 - 100 mg/dL Blood Venous blood specimen / Unknown Result [facility] Provider LAB BLOOD ORDERABLES Racquel l Result * Hemoglobin A1c (09/16/2017) [facility] Hemoglobin A1C 5.4 4.0 - 6.0 % Blood Venous blood specimen / Unknown Result [facility] Provider LAB BLOOD ORDERABLES Racquel l Result * Hepatitis C Screening (10/03/2014) [facility] Hepatitis C Screening Abstracted Result [facility] Provider HEALTH MAINTENANCE Final Result from Last 3 Months or Most Recently Relevant to Health Maintenance Insurance [employer] MEDICARE Member Subscriber Plan / Payer (Ef fective 2020-Present) Name:Urvashi Viveros Relation to Subscriber:Self Name:Urvashi Viveros Payer ID:[id number] Group ID:[id number] Type:Not on file Address: [address] [facility] [place] [phone] Advance Directives Documents on File Type Date Recorded Patient Hospitality Ambassador Expl anation Health Care Decision (hx) 01/27/2023 AD EMMANUEL DIRECTIVE Health Care Decision (hx) 01/27/2023 AD EMMANUEL DIRECTIVE Health Care Decision (hx) 01/27/2023 AD EMMANUEL DIRECTIVE Health Care Decision (hx) 01/27/2023 AD EMMANUEL DIRECTIVE Care Teams Sales Agent Casualty Insurance Relationship Specialty Start Date End Date Therese Godinez MD [address] [place] [phone] PCP - General 08/20/21
--- OUTSIDE RECORDS SUMMARY | 2025-01-28 14:29 | XMS_ITS | Clinical Summary ---
Author Organization [employer] Address [address] [place] [address] 7[address] [place] [address] Care Team Providers Care Tap Puller Name Role Phone Therese Godinez MD Primary Care Provider [phone] Allergies Active Allergy Reactions Criticality Noted Date Comments Aspirin Effervescent Other High 04/11/2023 Pt states can cause Internal bleeding per her provider. Latex 11/27/2020 Medications polyvinyl alcohol (Liquifilm Tears) 1.4 % ophthalmic solution 023 Active Ventolin HFA 108 (90 Base) MCG/ACT inhaler 023 Active clonazePAM (KlonoPIN) 1 MG tablet TAKE 1 TABLET BY MOUTH two (2) times a day 023 Active Breo Ellipta 200-25 MCG/ACT aerosol powder INHALE 1 PUFF BY MOUTH INTO lungs ONCE DAILY 023 Active DULoxetine (Cymbalta) [address] capsule Take 60 mg by mouth in the morning. Do not crush or chew. Active Diclofenac Sodium 1 % gel APPLY 2 GRAM TO THE AFFECTED AREA 4 (FOUR) TIMES DAILY 200 g 5 023 Active Cobalamin Combinations (Foltrate) 500-1 MCG-MG tablet Take by mouth. A ctive estradiol (Estrace) 0.1 MG/GM vaginal cream INSERT 1 GRAM VAGINALLY THREE TIMES WEEKLY DIRECTED 024 Active lidocaine (Lidoderm) 5 % patch Place 1 patch on the skin. Active Docusate Sodium (DSS) 100 MG capsule Take 1 capsule by mouth Once per day. 021 Active hydroCHLOROthiazi de (HYDRODiuril) 25 MG tablet TAKE 1 TABLET BY MOUTH IN THE MORNING 90 tablet 5 01/19/20 25 1:05 PM EST 025 Active cholecalciferol VITAMIN D (Vitamin D-3) 50 MCG (1999) tabletIndications :Vitamin D deficiency TAKE 1 TABLET BY MOUTH ONCE DAILY 90 tablet 5 Active losartan (Cozaar) 25 MG tabletIndications :Primary hypertension TAKE 1 TABLET BY MOUTH ONCE DAILY 30 tablet 5 Active Allergy Relief Cetirizine 10 MG tabletIndications :Seasonal allergies TAKE 1 TABLET BY MOUTH ONCE DAILY NEEDED 90 tablet 1 Active albuterol (2.5 MG/3ML) 0.083% nebulizer solutionIndicatio ns:Moderate persistent asthma with acute exacerbation Take 3 mL (2.5 mg) by nebulization every 6 (six) hours if needed for wheezing. 75 mL 3 01/15/20 10:31 AM EST 025 Active bisacodyl (Dulcolax) 5 MG EC tabletIndications :Chronic constipation Take 1 tablet (5 mg) by mouth if needed each day for constipation. Do not crush, chew, or split. 30 tablet Active omeprazole (PriLOSEC) [address] capsule TAKE 1 CAPSULE BY MOUTH ONCE DAILY BEFORE A MEAL 30 capsule Active diclofenac (Voltaren) 75 MG EC tabletIndications :Chronic pain of right knee TAKE 1 TABLET BY MOUTH two (2) times a day 60 tablet 01/15/20 10:31 AM EST 025 Active rosuvastatin (Crestor) 20 MG tabletIndications :Hyperlipidemia, unspecified hyperlipidemia type TAKE 1 TABLET BY MOUTH IN THE MORNING 90 tablet 1 01/19/20 25 1:05 PM EST 025 Active amLODIPine (Norvasc) 5 MG tabletIndications :Primary hypertension Take 1 tablet (5 mg) by mouth Once per day. 90 tablet 1 01/19/20 25 1:05 PM EST 025 Active Ketotifen Fumarate 0.035 % solution INSTILL 1 DROP IN EACH EYE two (2) times a day NEEDED Active Melatonin 10 MG capsule Take 1 capsule by mouth at bedtime. Active tolterodine LA 2 MG 24 hr capsule Active naltrexone (Depade) 50 MG tablet Take 0.5 tablets (25 mg) by mouth at bedtime. 15 tablet 2 Active buPROPion SR (Wellbutrin SR) 150 MG 12 hr tablet Take 1 tablet (150 mg) by mouth 2 times daily. Do not crush, chew, or split. 180 tablet 1 Active Blood Pressure kit 1 Units Once per day. 1 kit Active RA Melatonin 10 MG tablet Take by mouth at bedtime. 023 2024 Discontinued mirtazapine (Remeron) 15 MG tablet 024 2024 Discontinued(T herapy completed) amLODIPine (Norvasc) 5 MG tabletIndications :Primary hypertension TAKE 1 TABLET BY MOUTH ONCE DAILY 30 tablet 5 025 2024 Discontinued(R eorder (will not trigger notification to Pharmacy)) rosuvastatin (Crestor) 20 MG tabletIndications :Hyperlipidemia, unspecified hyperlipidemia type TAKE 1 TABLET BY MOUTH IN THE MORNING 90 tablet 1 025 2024 Discontinued tolterodine LA (Detrol LA) 4 MG 24 hr capsuleIndication s:Urinary incontinence, unspecified type TAKE 1 CAPSULE BY MOUTH ONCE DAILY 30 capsule 5 025 2024 Discontinued buPROPion XL (Wellbutrin XL) 150 MG 24 hr tablet 025 2024 Discontinued Active Problems Problem Noted Date Diagnosed Date Cervical pain 01/28/2025 History of CVA with residual deficit 01/28/2025 Overview (01/28/2025): Left sided deficit MCI (mild cognitive impairment) 01/28/2025 Chronic pain of right knee 12/05/2023 Assessment & Plan (01/05/2024 7:29 AM EST): Discussed potential side effects of Kenalog and expectations of treatment within next 72 hrs. Administered Kenalog due to arthritis in the right knee. Assessment & Plan (01/02/2024 1:57 PM EST): Discussed with patient additional treatment for knee pain, pt is interested in steroid injection. Follow up on 01/03 for steroid injection. Prescribing Diclofenac for Sx. Assessment & Plan (12/05/2023 2:25 PM EDT): Discussed medication refills as needed. Relevant Medications Meloxicam (Mobic) 15 mg tablet Varicose veins of both lower extremities with pa in 12/05/2023 Assessment & Plan (12/05/2023 2:24 PM EDT): Advised to use compression socks for Sx. 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 Reports went to [facility] ED, no records scanned in the system. No prior hx of gout or flares. At this moment, will check uric acid levels. Discussed conservative measures and send NSAIDs. - Consider further w/up and imaging if no improvement - Refer to podiatry Class 3 severe obesity due t o excess calories with serious comorbidity and body mass index (BMI) of 40.0 to 44.9 in adult 06/28/2022 Assessment & Plan (06/28/2022 9:53 AM EDT): Will send labs to check levels. Moderate persistent asthma with acute exacerbati on 06/28/2022 Assessment & Plan (06/28/2022 9:56 AM EDT): Will send inhaler. Anxiety 06/28/2022 Gastroesophageal reflux disease without esophagi tis 06/28/2022 Seasonal allergies 06/28/2022 Urgency incontinence 06/28/2022 Assessment & Plan (05/16/2023 2:26 PM EDT): Urvashi Viveros requires diapers given a history of (dx (urge incontinence), she has had appropriate workup, treatment and referrals to evaluate for potential reversible factors contributing to her incontinence with partial/incomplete resolution of symptoms. The patient has the following risk factors for developing incontinence ( F: high parity, menopause) ; (impaired mobility, increasing age, obesity). Prior referrals: Urology Test results: UA/ UCx Prior Treatments and efficacy: tolterodine, partial resolution Prior pelvic/rectal examination: Done today 05/16/23 Atrophic vagina Vitamin D deficiency 06/28/2022 Pulmonary nodules 10/29/2019 Overview (01/02/2024): Last Assessment & Plan: Stable pulmonary nodules subcentimeter. Continue in the lung cancer screening program. HTN (hypertension) 07/30/2015 Assessment & Plan (12/02/2022 3:02 PM EDT): Controlled Assessment & Plan (06/28/2022 1:17 PM EDT): Controlled. Continue current hypertension regimen. Resolved Problems Problem Noted Date Diagnosed Date Resolved Date Right ear pain 12/05/2023 01/28/2025 Assessment & Plan (12/05/2023 2:24 PM EDT): Possible TMJ, visible TM inflammation. Prescribing Vosol-HC for Sx. Relevant Medication Acetic Acid-Hydrocortisone (Vosol-HC) Otic Solution Encounters Date Type Department Care Team Description 01/28/2025 9:30 AM EST Office Visit [facility] [address] [place] [address] Therese Godinez MD Class 3 severe obesity due to excess calories with serious comorbidity and body mass index (BMI) of 40.0 to 44.9 in adult (HCC) (Primary Dx); Cervical pain; Primary hypertension; Encounter for immunization; History of CVA with residual deficit; MCI (mild cognitive impairment) 01/28/2025 Telephone [facility] [address] [place] [address] Therese Godinez MD 01/28/2025 Travel 01/22/2025 Telephone [facility] [address] [place] [address] Luciana Carrion MA chart prep 01/11/2025 Refill [facility] [address] [place] [address] Milady Barahona NP Primary hypertension 01/11/2025 Refill [facility] [address] [place] [address] Therese Godinez MD Hyperlipidemia, unspecified hyperlipidemia type; Primary hypertension 12/08/2024 Refill [facility] [address] [place] [address] Reginald Winchester MD Chronic pain of right knee 11/08/2024 Results Follow-Up [facility] [address] [place] [address] Lung Screening Low dose from Last 3 Months Immunizations Immunization Administration Dates Next Due INFLUENZA INJECTABLE QUADRIV ALANT CCIIV4 MDCK Multi-dose vial 12/30/2016 Influenza High-dose Quadrivalent Preservative Fr ee 12/02/2022,12/16/2021 Influenza injectable quadrivalent preservative f ree 11/27/2020 Influenza, High Dose Seasonal, Preservative Free 01/28/2025 Influenza, IIV3, injectable 11/27/2015, 1 Influenza, Injectable, MDCK, preservative free 1 Influenza, seasonal, injectable, preservative fr ee 11/27/2015 Pneumococcal Conjugate PCV 13 11/27/2015 Pneumococcal Polysaccharide PPSV23 12/22/2021 RSV Bivalent 05/16/2023 Tdap 09/16/2017 Zoster, Recombinant 09/06/2022,06/28/2022 Social History Tobacco Use Types Packs/Day Years Used Date Smoking Tobacco: Never Passive Smoke Exposure: Never Smokeless Tobacco: Never Tobacco Cessation:Counseling Given: No Alcohol Use Standard Drinks/Week Comments Not Currently [...] not to disclose 2021 10:39 AM EDT Last Filed Vital Signs Vital Sign Reading [...] Mass Index 44.11 01/28/2025 9:25 AM EST Plan of Treatment Upcoming Encounters Date Type Department Care Team (Late st Contact Info) Description 02/13/2025 2:00 PM EST Clinical Support [facility] [address] [place] [address] Health Maintenance Due Date Last Done Comments CT Colonography 1955 FIT DNA/Cologuard 1955 FIT 1955 FOBT 1955 Sigmoidoscopy 1955 Diabetes: Foot Exam 12/19/1965 Eye Exam 12/19/1965 Diabetes: Urine Protein Screening 06/29/2023 06/28/2022 Lipid Panel 09/28/2023 09/27/2022, 05/0 02/2022, 01/09/2021 Depression Monitoring 07/29/2025 01/28/2025, 025 Diabetes: Hemoglobin A1C 07/29/2025 025, 06/28/2022, 01/09/2021, Additional history exists Lung Cancer Screening 10/17/2025 10/17/2024 , 09/19/2023, 09/17/2022 Colonoscopy 01/27/2026 01/27/2023 Colorectal Cancer Screening 01/27/2026 Alcohol/Substance Use Screening 01/28/2026 01/28/2025 COVID-19 Vaccine ( season) 2026 07/17/2020, 06/22/2020 Postponed from 10/29/2024 (Patient Refused) SDOH Screening 01/28/2026 01/28/2025 Tobacco Screening 01/28/2026 01/28/2025 Mammogram 01/22/2027 01/22/2025, 12/30, 12/30/2023 DTaP/Tdap/Td Vaccines (2 - Td or Tdap) 09/17/2027 09/16/2017 Pneumococcal Vaccine: 50+ Years Completed 12/22/2021, 11/27/2015 Zoster Vaccines Completed 09/06/2022, 06/28/2022 Hepatitis C Screening Completed 09/27/2022 RSV Patients and Patients Aged 60 years or older Completed 05/16/2023 Influenza Vaccine Completed 01/28/2025, , 12/02/2022, Additional history exists HIB Vaccines Aged Out No longer eligi [...] patient's age to complete this topic Meningococcal Vaccine Aged Out No torres bebe eligible based on patient's age to complete this topic RSV under 20 months Aged Out No longe r eligible based on patient's age to complete this topic Rotavirus Vaccines Aged Out No longer eligible based on patient's age to complete this topic Procedures Procedure Name Priority Date/Time Associated Diagnosis Comments POCT GLUCOSE Routine 01/28/2025 10:07 AM EST Class 3 severe obesity due to excess calories with serious comorbidity and body mass index (BMI) of 40.0 to 44.9 in adult (HCC) POCT GLYCATED HEMOGLOBIN, TOTAL Routine 01/28/2025 10:06 AM EST Class 3 severe obesity due to excess calories with serious comorbidity and body mass index (BMI) of 40.0 to 44.9 in adult (HCC) HM LUNG CANCER SCREENING Routine 09/19/2023 3:42 PM EDT COLONOSCOPY Routine 01/27/2023 3:51 PM EST HEPATITIS C ANTIBODY Routine 09/27/2022 2:45 PM EDT Encounter for health-related screening LIPID PANEL, STANDARD Routine 09/27/2022 2:45 PM EDT Hyperlipidemia, unspecified hyperlipidemia type ALBUMIN, RANDOM URINE W/O CREATININE Routine 06/28/2022 9:52 AM EDT Primary hypertension from Last 3 Months or Most Recently Relevant to Health Maintenance Results * POCT Glucose (01/28/2025 10:07 AM EST) Glucose Blood, POC 110 60 - 200 mg/dL QC Media Lot # [id number] Blood Capillary blood specimen / Unknown 01/28/2025 10:07 AM EST Therese Godinez MD POINT OF CARE TEST ENTER/EDIT ORDERABLES Final Result * POCT Hgb A1c (01/28/2025 10:06 AM EST) Pathologist [facility] [place] Hemoglobin A1C 5.1 4.0 - 5.7 % QC Media Lot # [id number] Lot# Expiration Date [id number] Blood 01/28/2025 10:0 6 AM EST Result [facility] Therese Godinez MD POINT OF CARE TEST ENTER/EDIT ORDERABLES Final Result * Hm Lung Cancer Screning (09/19/2023 3:42 PM EDT) Anatomical Region Laterality Modality Other Result [facility] Provider HEALTH MAINTENANCE Final Result * Colonoscopy (01/27/2023 3:51 PM EST) Anatomical Region Laterality Modality Endoscopy Result [facility] Provider ENDOSCOPY PROCEDURE ORDER MONICA Final Result * Hepatitis C Ab (09/27/2022 2:45 PM EDT) Pathologist [facility] Hepatitis C Antibody Nonreactive Nonreactive [facility] Comment:Antibodies to HCV no t detected; does not exclude early acuteHCV infection. Blood 09/27/2022 2:45 PM EDT 09/27/2022 5:28 PM EDT Result [facility] Therese Godinez MD LAB BLOOD ORDERABLES Final Re sult [facility] [address] [place] [phone] * Lipid Panel, Standard (09/27/2022 2:45 PM EDT) Pathologist [facility] Triglycerides 121 mg/dL [facility] Comment:Desirable Triglyceri de: less than 150 mg/dLBorderline High Triglyceride 150-199 mg/dLHigh Triglyceride: 200-499 mg/dLVery High Triglyceride: greater than or equal to 5OO mg/dL Cholesterol 179 mg/dL [facility] Comment:Desirable Cholestero l: less than 200 mg/dLBorderline High Cholesterol: 200-239 mg/dLHigh Cholesterol: greater than 239 mg/dL LDL Cholesterol Calculated 61 mg/dl [facility] Comment:Desirable LDL: less than 100 mg/dLNear Optimal/Above Optimal LDL: 110- 129 mg/dLBorderline High LDL: 130-159 mg/dLHigh LDL: 160-189 mg/dLVery High LDL: greater than or equal to 190 mg/dL HDL Cholesterol 94 mg/dL [facility] Comment:Desirable HDL: great er than 40 mg/dL Note: This HDL assay may give artificially low results in patients with liver disease. Blood Venous blood specimen / Unknown 09/27/2022 2:45 PM EDT 09/27/2022 5:28 PM EDT Therese Godinez MD LAB BLOOD ORDERABLES Final Re sult [facility] [address] [place] [phone] * Albumin, Random Urine W/O Creatinine (06/28/2022 9:52 AM EDT) Albumin, Urine 0.7 See Note: mg/dL [facility] [place] [address] Comment: Reference Range: Reference Range Not established RACHAEL [facility] Comment: The ADA defines abnormalities in albumin excretion as follows: Albuminuria Category Result (mcg/mg creatinine) Normal to Mildly increased <30 Moderately increased 30-299 Severely increased > OR = 300 The ADA recommends that at least two of three specimens collected within a 3-6 month period be abnormal before considering a patient to be within a diagnostic category. Urine Urine specimen obtained by clean catch procedure / Unknown 06/28/2022 9:52 AM EDT 06/28/2022 9:53 AM EDT Narrative [facility] - 07/02/2022 2:05 PM EDT FASTING:YES FASTING: YES Therese Godinez MD LAB URINE ORDERABLES Final Re sult [facility] [address] [facility], [facility], [place] [address] [facility] [address] [place] [phone] from Last 3 Months or Most Recently Relevant to Health Maintenance Insurance [facility] [employer] (HMO D-SNP) [place] [id number] Care Teams Tap Puller Relationship Specialty Start Date End Date Therese Godinez MD [address] [place] [id number] PCP - General Family Medicine 11/27/20 Adam Cortez Nurse Practitioner Psychiatry 06/29/23
--- OUTSIDE RECORDS SUMMARY | 2025-01-28 14:29 | XMS_ITS | Encounter Summary ---
Author Organization [employer] [facility] Address [address] [place] [address] [address] [place] [address] Care Team Providers Care Mainspring Torque Tester Name Role Phone Therese Godinez MD Primary Care Provider [phone] Encounter Details Date Type Department Care Team ([facility] Contact Info) Description 04/13/2022 Orders Only [facility] [address] [place] [address] Erin Capps LPN Social History Tobacco Use Types Packs/Day Years Used Date Smoking Tobacco: Never Assessed Comments Unknown Sex and Gender Information Value Date Recorded Sex Assigned at Female 12/28/2021 10:39 AM EDT Legal Sex Female 10:39 AM EDT Gender Identity Female 12/28/2021 10:39 AM EDT Sexual Orientation Choose not to disclose 2021 10:39 AM EDT documented as of this encounter Plan of Treatment Upcoming Encounters Date Type Department Care Team ([facility] Contact Info) Description 02/13/2025 2:00 PM EST Clinical Support [facility] [address] [place] [address] documented as of this encounter Visit Diagnoses Not on filedocumented in this encounter Care Teams Mainspring Torque Tester Relationship Specialty Start Date End Date Therese Godinez MD [address] [place] [phone] PCP - General Family Medicine 11/27/20 Adam Cortez Nurse Practitioner Psychiatry 06/29/23 documented as of this encounter
--- OUTSIDE RECORDS SUMMARY | 2025-01-28 14:29 | XMS_ITS | Encounter Summary ---
Author Organization [employer] Address [address] [place] [address] [address] [place] [address] Care Team Providers Care Combine Inspector Name Role Phone Therese Godinez MD Primary Care Provider [phone] Reason for Visit * Reason Onset Date Comments Flu shot 11/22/2022 Encounter Details Date Type Department Care Team ([facility] Contact Info) Description 11/22/2022 Telephone [facility] [address] [place], [place] [phone] Therese Godinez MD [address] [place] [address] Flu shot Social History Tobacco Use Types Packs/Day Years [...] AM EDT documented as of this encounter Miscellaneous Notes * Telephone Encounter - Karla Paige - 11/22/2022 1:54 PM EDT Tc from pt spouse requesting an appt for a flu shot. Please contact pt at [phone] Nigerien Speaker documented in this encounter Plan of Treatment Upcoming Encounters Date Type Department Care Team (Late st Contact Info) Description 02/13/2025 2:00 PM EST Clinical Support [facility] [address] [place] [address] documented as of this encounter Visit Diagnoses Not on filedocumented in this encounter Additional Health Concerns Assessment Noted Time PHQ-9 Depression Total Score: 4 06/29/19 23 9:31 AM EDT documented as of this encounter Care Teams Combine Inspector Relationship Specialty Start Date End Date Therese Godinez MD [address] [place] [address] PCP - General Family Medicine 11/27/20 Adam Cortez Nurse Practitioner Psychiatry 06/29/23 documented as of this encounter
--- OUTSIDE RECORDS SUMMARY | 2025-01-28 14:30 | XMS_ITS | Encounter Summary ---
Author Organization [employer] Address [address] [facility] [address] [place] [address] Care Team Providers Care Beading Sawyer Name Role Phone Therese Godinez MD Primary Care Provider [phone] Reason for Visit * Reason Comments Med Refill Encounter Details Date Type Department Care Team ([facility] st Contact Info) Description 08/05/2023 Refill [facility] [address] [place] [address] Therese Godinez MD [address] [place], [place] [phone] Seasonal allergies Social History Tobacco Use Types Packs/Day Years [...] Description 02/13/2025 2:00 PM EST Clinical Support [facility] [address] [place] [address] documented as of this encounter Visit Diagnoses Diagnosis Seasonal allergies Allergic rhinitis, cause unspecified documented in this encounter Additional Health Concerns Assessment Noted Time PHQ-9 Depression Total Score: 4 06/29/19 23 9:31 AM EDT documented as of this encounter Care Teams Beading Sawyer Relationship Specialty Start Date End Date Therese Godinez MD [address] [place] [address] PCP - General Family Medicine 11/27/20 Adam Cortez Nurse Practitioner Psychiatry 06/29/23 documented as of this encounter
--- OUTSIDE RECORDS SUMMARY | 2025-01-28 14:30 | XMS_ITS | Encounter Summary ---
Author Organization [employer] Address [address] [facility] [address] [place] [address] Care Team Providers Care Trim Technician Name Role Phone Therese Godinez MD Primary Care Provider [phone] Encounter Details Date Type Department Care Team ([facility] Contact Info) Description 10/23/2024 Orders Only [facility] [address] [place], [place] [phone] Provider, MD Komal Social History Tobacco Use [...] Description 02/13/2025 2:00 PM EST Clinical Support [facility] [address] [place] [address] documented as of this encounter Procedures Procedure Name Priority Date/Time Associated Diagnosis Comments CT LUNG SCREENING Routine 10/17/2024 3:1 9 PM EDT documented in this encounter Results * CT Lung Screening Low dose (10/17/2024 3:19 PM EDT) Anatomical Region Laterality Modality Lung Computed Tomogra phy us Historical Provider MD OSEGUERA CT PROCEDURES Final R esult documented in this encounter Visit Diagnoses Not on filedocumented in this encounter Additional Health Concerns Assessment Noted Time PHQ-9 Depression Total Score: 4 06/29/19 23 9:31 AM EDT documented as of this encounter Care Teams Trim Technician Relationship Specialty Start Date End Date Therese Godinez MD [address] [place] [phone] PCP - General Family Medicine 11/27/20 Adam Cortez Nurse Practitioner Psychiatry 06/29/23 documented as of this encounter
[2025-01-28 14:33] LABS: Hematocrit 39.8 % (37.0-47.0); Hemoglobin 12.8 g/dl (12.0-16.0); Imm Gran Abs Auto 0.02 X10*3/uL (0.00-0.03); Imm Gran Pct Auto 0.3 % (0.0-0.4); Lymphocytes Absolute Auto 1.7 X10*3/uL (1.2-4.9); Mean Corpuscular HGB Conc 32.2 g/dl (31.0-35.0); Mean Corpuscular Hemoglobin 29.2 pg (27.0-33.0); Mean Corpuscular Volume 90.7 fL (80.0-98.0); NRBC Abs Auto 0.000 X10*3/uL (0.0-0.012); NRBC Pct Auto 0.0 /100WBC (0.0-0.2); Platelet Count 270 X10*3/uL (160-400); Red Blood Count 4.39 X10*6/uL (4.20-5.50); White Blood Count 6.2 X10*3/uL (4.8-10.8)
[2025-01-28 14:46] LABS: Alanine Aminotransferase 17 U/L (0-31); Albumin Level 4.4 g/dL (3.5-5.0); Alkaline Phosphatase 103 U/L (39-117); Anion Gap 10 (12-20); Aspartate Amino Transferase 19 U/L (5-31); Blood Urea Nitrogen 16 mg/dL (9-16); Calcium 9.4 mg/dL (8.4-10.2); Carbon Dioxide 28 mmol/L (22-29); Chloride 107 mmol/L (96-108); Cholesterol 162 mg/dL (<200); Estimated Glomerular Filt Rate > 60; HDL Cholesterol 85 mg/dL (>40); Potassium 3.4 mmol/L (3.3-5.1); Sodium 142 mmol/L (135-145); Total Protein 7.3 g/dL (6.5-8.0); Triglycerides 163 mg/dL (<150)
== END 2025-01-28 11:05 | disposition home or self-care (01) ==
LOC: HO.CHCLDS 11:04
PROVIDERS: Visit Provider Family Medicine
DX: I10 Essential (primary) hypertension (principal)
CPT/HCPCS: 36415; 80053; 80061; 85025